=== PATIENT | male | born 1960 | race Caucasian/White ===

== ENCOUNTER 2016-07-08 22:42 | Inpatient (IN) | payer OTHER ==
--- NOTE | ~2016-07-08 | CN ---
Consultation Report [facility] [address] [place]. [address] NAME: YVETTE JACOME : 56 STATUS : ADM Trish PAT#: [id number] AGE: 56 ADM/REG DATE : 07/08/16 MR#: [id number] REPORT SERV DATE: 07/09/16 DICTATED BY: KJ TOSCANO DATE: 07/09/16 REPORT STATUS : Draft TRANSCRIBED BY: MODL DATE: 07/09/16 SURGERY CONSULT NOTE DATE OF CONSULTATION: 07/09/2016 REASON FOR CONSULT: Possible colonic pseudo-obstruction. HISTORY OF PRESENT ILLNESS: This is a 56-year-old male was in his normal state of health until after eating a hamburger on . He subsequently had epigastric pain, nausea, vomiting, followed by diarrhea. He has had diarrhea ever since, but he did take some Imodium, which slowed the diarrhea. He came to the hospital and was evaluated and CT scan, which showed some concern for Sirena's syndrome. The patient was admitted overnight, started on IV fluids. He states, he feels much better this morning. He has already had several bouts of diarrhea this morning. Although, his abdominal pain has gone. He also states, he is feeling hungry at this point for the first time. The patient denies any other complaints at this time. PAST MEDICAL HISTORY: Hypertension, hyperlipidemia. PAST SURGICAL HISTORY: None. SOCIAL HISTORY: Denies any tobacco, alcohol, or illicit drug use. HOME MEDICATIONS: Antihypertensive pill, he is on cholesterol medicine and he cannot remember the name. He is also recently on Z-Chester for sinus infection. FAMILY HISTORY: Significant for kidney cancer in his father. ALLERGIES: NONE. REVIEW OF SYSTEMS: Comprehensive review of systems is performed and is negative other than in the HPI. PHYSICAL EXAMINATION: GENERAL: This is a 56-year-old male, looks his stated age. No acute distress. VITAL SIGNS: Temp 98.5, blood pressure 104/60, heart rate 60, respiratory rate 14, O2 saturation 98% on room air. NEURO: The patient is alert and oriented x3. No focal sensory motor deficits. HEENT: The patient is normocephalic. Head is atraumatic. Pupils are equal, round, reactive to light. Extraocular muscles intact. NECK: Soft and supple. Trachea is midline. HEART: Regular rate and rhythm. No murmurs, gallops, or rubs. CHEST: Clear to auscultation bilaterally. No rhonchi. No wheezes. ABDOMEN: Soft, nondistended, nontender. Positive bowel sounds. Consultation Report [facility] [place]. [address] NAME: YVETTE JACOME : 56 STATUS : ADM Trish PAT#: [id number] AGE: 56 ADM/REG DATE : 07/08/16 MR#: [id number] REPORT SERV DATE: 07/09/16 DICTATED BY: KJ TOSCANO DATE: 07/09/16 REPORT STATUS : Draft TRANSCRIBED BY: MODCollette DATE: 07/09/16 EXTREMITIES: The patient moves all extremities. LABORATORIES: White count 6.9, hematocrit 45.7. Sodium 136, potassium 3.6, chloride 106, creatinine 0.85. Amylase, lipase normal. ASSESSMENT AND PLAN: This is a 56-year-old male likely with gastroenteritis. Symptoms not truly consisted with Wildorado's. I do not feel this is an Wildorado's type picture, some concern for C diff given the patient's recent use of antibiotics versus different sort of gastroenteritis. C diff, his stool cultures already been sent. We will plan on signing off. Please call if you have any questions. DICTATED BY: MD FAM Caldwell/JOSE DE JESUS Kj Toscano M.D. / [id number] CC: Amanda Grover
--- NOTE | ~2016-07-08 | HP ---
History And Physical [facility] [address] [place]. [address] NAME: YVETTE JACOME : 56 STATUS : ADM Trish PAT#: [id number] AGE: 56 ADM/REG DATE : 07/08/16 MR#: [id number] REPORT SERV DATE: 07/09/16 DICTATED BY: JESÚS LUX DATE: 07/09/16 REPORT STATUS : Draft TRANSCRIBED BY: MODL DATE: 07/09/16 DATE OF ADMISSION: 07/08/2016 CHIEF COMPLAINT: Abdominal pain, nausea. HISTORY OF PRESENT ILLNESS: This is a 56-year-old male with a history of nephrolithiasis and no other significant past medical history, presents to the emergency room at [facility] with the above-mentioned complaint. History is obtained from the patient, his , who is at bedside, and reviewing data available on the [facility] system. According to Mr. Jacome, he had been in usual state of health and around last , he ate a burger at [facility]. He states he was very hungry and ate it little fast, but since then has had some epigastric discomfort, like he has acid reflux, but the main problem was his belly, which was constantly rumbling. He had diarrhea with watery brown stools, which then turned into clear mucoid stools. He says there was no blood, there were no black or tarry stools seen at all. He thought it would pass, but when it continued into Sunday, he then took some Imodium. This stopped the diarrhea, but he continued to have nausea and his abdomen was distended and painful. He decided to come to the emergency room to be evaluated. In the emergency room, initial workup including a CT scan of his abdomen and pelvis revealed acute colonic ileus without any perforation or obstruction. The ER physicians had spoken with Dr. Toscano, the general surgeon, who advised admission to the Hospitalist Service, keep n.p.o. and IV fluids, and they will consult in the morning. At the time of my evaluation, he continued to have some abdominal discomfort and nausea. He denied any chest pain or palpitations. He had no orthopnea. He had no cough, hemoptysis, night sweats, or weight loss. He has not had any recent falls or loss of consciousness. No history of fevers or chills. He denied any hematemesis, hematochezia, or hematuria. No other history of recent travel or exposures other than those mentioned above. PAST MEDICAL HISTORY: Significant for history of nephrolithiasis. SOCIAL HISTORY: He does not smoke, drink, or use recreational drugs. He does, however, chew and he uses twist of tobacco a week. FAMILY HISTORY: Noncontributory. MEDICATIONS: His medications at home were reviewed by me in the chart today and to be reordered by me. REVIEW OF SYSTEMS: As in history of present illness. All other systems were reviewed in detail and are quite unremarkable. History And Physical [address] [address] NAME: YVETTE JACOME : 56 STATUS : ADM Trish PAT#: [id number] AGE: 56 ADM/REG DATE : 07/08/16 MR#: [id number] REPORT SERV DATE: 07/09/16 DICTATED BY: JESÚS LUX DATE: 07/09/16 REPORT STATUS : Draft TRANSCRIBED BY: JOSE DE JESUS DATE: 07/09/16 PHYSICAL EXAMINATION: GENERAL: This is a pleasant 56-year-old, not in any acute distress. HEENT: Head is atraumatic, normocephalic. He is alert, awake, oriented to time, place, and person. Pupils are equal, reacting to light and accommodating. External ocular muscles are intact. Membranes are moist and pink. Sclerae are nonicteric. NECK: Supple with no jugular venous distention, lymphadenopathy, or thyromegaly. LUNGS: Clear to auscultation with no wheezes, rubs, or crackles. HEART: Heart sounds were regular with no murmurs, rubs, or gallops. ABDOMEN: Mildly distended and slightly tympanic with loud borborygmi upon auscultation. EXTREMITIES: Showed no cyanosis, clubbing, or edema. NEUROLOGIC: Grossly intact. No focal sensory or motor deficits. Higher functions appeared intact. Gait was not examined. VITAL SIGNS: Showed a temperature of 99.3, pulse 112, respirations 20 a minute, blood pressure was 130/87, oxygen saturations were 97%, breathing 2 L of oxygen via nasal cannula. LABORATORY DATA: Reviewed on the [facility] showed a sodium of 132, potassium 3.6, chloride 98 and CO2 of 25, BUN was 14 with a creatinine of 1.26 and glucose was 123. Calcium was 8.1. Magnesium was not checked. His lipase was 48. CBC showed a normal white blood cell count, hemoglobin was 18.1, hematocrit 49.3, and platelet count was 116,000. Urinalysis was grossly unremarkable. Films of the CT scan of his abdomen and pelvis were reviewed by me on the PACS today. Official Radiology comments were also reviewed. According to the radiologist, there is moderate distention of the right colon with gas and fluid. There is no focal transition point detected. There is gradual caliber change within the left colon. His impression was acute colonic ileus. IMPRESSION: 1. Acute abdominal pain. 2. Nausea, vomiting, and diarrhea. 3. Acute colonic ileus or Sirena syndrome. 4. History of nephrolithiasis. PLAN: We will admit Mr. Jacome to the Hospitalist Service with telemetry for a 24-hour observation period. We will keep him n.p.o. for now. Start him on IV fluids for volume replacement and go ahead and consult General Surgery to see him in the morning. As mentioned above, the ER physician had already spoken with Dr. Toscano and he had suggested the above. Meanwhile, we will start him on intravenous Zofran and Phenergan on an as-needed basis for symptoms of nausea and vomiting. We will avoid narcotics to treat pain as this will worsen his ileus. I have explained this to the patient and his . We will also place him on SCDs for DVT prophylaxis while he is here. Again we will be watching him closely, repeat labs and chemistry in the morning including CBC, and watch for bowel perforation or other complications. Hospitalist Service will be following him during his stay here. MR/BRANDENL History And Physical [address] [address] NAME: YVETTE JACOME : 56 STATUS : ADM Trish PAT#: [id number] AGE: 56 ADM/REG DATE : 07/08/16 MR#: [id number] REPORT SERV DATE: 07/09/16 DICTATED BY: JESÚS LUX DATE: 07/09/16 REPORT STATUS : Draft TRANSCRIBED BY: JOSE DE JESUS DATE: 07/09/16 Jesús Lux M.D. / [id number] CC: Amanda Grover
--- NOTE | ~2016-07-08 | DS ---
Discharge Summary [facility] [address] [place]. [address] NAME: YVETTE JACOME : 56 STATUS : DIS Trish PAT#: [id number] AGE: 56 ADM/REG DATE : 07/08/16 MR#: [id number] REPORT SERV DATE: 07/12/16 DICTATED BY: FADIA SNOWDEN DATE: 07/11/16 REPORT STATUS : Draft TRANSCRIBED BY: JOSE DE JESUS DATE: 07/11/16 ADMISSION DATE: 07/08/2016 DISCHARGE DATE: 07/11/2016 DIAGNOSES: 1. Colonic ileus, resolved. 2. Diarrhea, resolved. 3. New-onset atrial fibrillation, resolved. 4. History of hypertension. FOLLOWUP: The patient should follow up with Dr. Harvey of Cardiology, [facility], in three to four weeks and follow up with the primary care physician in one to two weeks. DIET: GI soft diet. DISCHARGE MEDICATIONS: Metoprolol 12.5 mg p.o. b.i.d., Pravachol 20 mg p.o. q.h.s., Xarelto 20 mg p.o. with supper, Levaquin 750 mg p.o. daily for three days, Flagyl 500 mg p.o. t.i.d. for four days. HOSPITALIST: Dr. Jesús Shay, Dr. Simon, and Dr. Snowden. CONSULTANTS: General Surgery, Dr. Toscano, and Cardiology/[facility] with Dr. Kev Harvey. HOSPITAL COURSE: A 56 years old male with past medical history of hypertension presented with increased abdominal pain with distention, nausea, and severe diarrhea after eating a hamburger. The patient presented to [facility] ER, had a CT of the abdomen and pelvis that revealed colonic ileus with no signs of perforation or obstruction. Dr. Toscano with General Surgery was consulted by ER physician with recommendation of following the patient in consultation. The patient was admitted to the Hospitalist Service, initially made n.p.o., also seen by Cardiology Service for acute-onset atrial fibrillation. The patient was placed on metoprolol as well as IV heparin. Also, the patient had a recent echocardiogram as an outpatient that revealed an ejection fraction of 65%, which was faxed over to the chart. The patient also was initially cared for by Dr. Aurora. His diet was slowly advanced as tolerated. Electrolytes were replaced. At the time of discharge, the patient was eating well with normal bowel movements and no nausea and vomiting with good flatulence. Also, lipase was within normal limits with a normal lactate. It was recommended by Cardiology for the patient to continue with 30 days of Xarelto, for which the patient was discharged with that recommendation and was clinically and hemodynamically stable for discharge. [facility]/JOSE DE JESUS Fadia Snowden M.D. Discharge Summary [address] [address] NAME: YVETTE JACOME : 56 STATUS : DIS Trish PAT#: [id number] AGE: 56 ADM/REG DATE : 07/08/16 MR#: [id number] REPORT SERV DATE: 07/12/16 DICTATED BY: FADIA SNOWDEN DATE: 07/11/16 REPORT STATUS : Draft TRANSCRIBED BY: JOSE DE JESUS DATE: 07/11/16 / [id number] CC: Amanda Dailey
--- NOTE | ~2016-07-08 | CN ---
Consultation Report [facility] [address] [place]. [address] NAME: YVETTE JACOME : 56 STATUS : ADM Trish PAT#: [id number] AGE: 56 ADM/REG DATE : 07/08/16 MR#: [id number] REPORT SERV DATE: 07/09/16 DICTATED BY: KEV HARVEY DATE: 07/09/16 REPORT STATUS : Draft TRANSCRIBED BY: MODL DATE: 07/09/16 CARDIOLOGY CONSULTATION DATE OF CONSULTATION: 07/09/2016 INDICATIONS: Atrial fibrillation. HISTORY OF PRESENT ILLNESS: Yvette Jacome is a 56-year-old man with a past medical history essentially for hypertension and dyslipidemia, presents to the emergency room with diarrhea, abdominal pain, nausea, vomiting, and fevers. He was found to have an ileus. He began to pass stool. He was seen by surgery with no plans for surgical intervention. While in the hospital, he developed atrial fibrillation and Cardiology was consulted. He had an echocardiogram performed last week secondary to report of "cardiomegaly" on the chest x-ray, but did not have the results. He has no sensation of palpitations or irregular rhythm. No lightheadedness. No dizziness. No syncope. Has never been diagnosed with atrial fibrillation or any other cardiac issues other than "cardiomegaly." PAST MEDICAL HISTORY: Hypertension and dyslipidemia. HOME MEDICATIONS: Flexeril, Prinivil 10 mg daily, Pravachol 20 daily. ALLERGIES: PENICILLINS, OXYCODONE, AND ASPIRIN. SOCIAL HISTORY: No smoking. No alcohol. He is a resendez, lives with his spouse. FAMILY HISTORY: Reviewed and notable for hypertension. REVIEW OF SYSTEMS: As per the HPI. Otherwise, all review of systems is negative. PHYSICAL EXAMINATION: VITAL SIGNS: Blood pressure of 130/87, pulse 112, respiratory rate 18. GENERAL: Appears stated age, no distress. EYES: Sclerae anicteric, no arcus senilis. MOUTH: Oral mucosa moist, lips acyanotic. NECK: Jugular venous pressure normal, no carotid bruits. LUNGS: Clear to auscultation bilaterally, normal inspiratory effort. CARDIAC: Irregular rhythm. ABDOMEN: Soft, nondistended, nontender. EXTREMITIES: No edema. SKIN: Warm and dry. NEURO/PSYCH: Alert and oriented, nonfocal, mood appropriate. DATA: Potassium is 3.6. Creatinine 0.85. Hemoglobin 16.5. Consultation Report [facility] [id number] [place]. [address] NAME: YVETTE JACOME : 56 STATUS : ADM Trish PAT#: [id number] AGE: 56 ADM/REG DATE : 07/08/16 MR#: [id number] REPORT SERV DATE: 07/09/16 DICTATED BY: KEV HARVEY DATE: 07/09/16 REPORT STATUS : Draft TRANSCRIBED BY: JOSE DE JESUS DATE: 07/09/16 EKG: Atrial fibrillation with ventricular response at 72 beats per minute. QTc is 82 milliseconds. No chest x-ray. IMPRESSION: 1. New atrial fibrillation. 2. Ileus. 3. Hypertension. 4. Dyslipidemia. RECOMMENDATIONS: Obtain recent echocardiogram. Begin metoprolol and flecainide. IV heparin overnight and consider oral anticoagulation tomorrow pending clinical course. [facility]/JOSE DE JESUS Kev Harvey M.D. / [id number] CC: Amanda Grover, Jessica Lyn
[2016-07-08 21:33] LABS: BASOPHILS 0.1 %; BASOPHILS ABSOLUTE 0.01 10/3/uL (0.0-0.16); EOSINOPHILS 0.4 %; EOSINOPHILS ABSOLUTE 0.03 10/3/uL (0.0-0.53); HEMATOCRIT 49.3 % (40.0-51.0); HEMOGLOBIN 18.1 g/dL (13.6-17.8); IMMATURE GRANULOCYTES 0.5 %; IMMATURE GRANULOCYTES ABSOLUTE 0.04 10/3/uL (0.0-0.11); LYMPHOCYTES 5.8 %; LYMPHOCYTES ABSOLUTE 0.45 10/3/uL (0.67-4.30); MEAN CORPUS HGB CONC 36.7 g/dL (32.0-36.0); MEAN CORPUSCULAR HEMOGLOB 31.9 pg (26.0-34.0); MEAN CORPUSCULAR VOLUME 86.9 fL (80-100); MEAN PLATELET VOLUME 10.6 fL (9.2-13.0); MONOCYTES 6.6 %; MONOCYTES ABSOLUTE 0.51 10/3/uL (0.21-1.20); NEUTROPHILS 86.6 %; NEUTROPHILS ABSOLUTE 6.66 10/3/uL (2.02-8.40); PLATELET COUNT 116 10/3/uL (150-400); RBC DISTRIBUTION WIDTH 13.8 % (12.0-16.0); RED CELL COUNT 5.67 10/6/uL (4.7-6.1); WHITE BLOOD CELLS 7.7 10/3/uL (4.5-10.5)
[2016-07-08 21:34] LABS: MANUAL DIFF NO %
[2016-07-08 21:36] LABS: ASCORBIC ACID (UR NOT ORDER) NEG (NEG); BILIRUBIN, URINE NEGATIVE (NEG); ER URINALYSIS TAT 0 Hrs 09 Mins; KETONE, URINE NEGATIVE (NEG); LEUKOCYTE ESTERASE(NOT OR NEG (NEG); NITRITE (URINE) NEG (NEG); WBC (NOT ORDERED) (RFLEX) 1 (0-5)
[2016-07-08 21:48] LABS: A/G RATIO 0.9 (0.7-1.9); ALBUMIN 3.4 G/DL (3.5-5.0); ALKALINE PHOSPHATASE 78 U/L (45-117); BUN (BLOOD UREA NITROGEN) 14 MG/DL (6-23); CALCIUM, SERUM 8.1 MG/DL (8.5-10.4); CHLORIDE, SERUM 98 MMOL/L (96-112); CO2 (CARBON DIOXIDE) 25 MMOL/L (24-34); CREATININE 1.26 MG/DL (0.70-1.30); GFR AFRICAN AMERICAN 72 ML/MIN (>=60); GFR NON AFRICAN AMERICAN 62 ML/MIN (>=60); GLOBULIN 3.6 G/DL (2.5-4.1); GLUCOSE, SERUM 123 MG/DL (60-99); POTASSIUM, SERUM 3.6 MMOL/L (3.5-5.3); SGOT(AST) 16 U/L (5-40); SGPT(ALT) 26 U/L (5-65); SODIUM, SERUM 132 MMOL/L (135-148); TOTAL BILIRUBIN 1.1 MG/DL (0-1.2)
[2016-07-08 23:21] LABS: INFLUENZA A SCREEN NEGATIVE (NEGATIVE); INFLUENZA B SCREEN NEGATIVE (NEGATIVE)
[2016-07-09 07:35] LABS: BASOPHILS 0.4 %; BASOPHILS ABSOLUTE 0.03 10/3/uL (0.0-0.16); EOSINOPHILS 0.4 %; EOSINOPHILS ABSOLUTE 0.03 10/3/uL (0.0-0.53); HEMATOCRIT 45.7 % (40.0-51.0); HEMOGLOBIN 16.5 g/dL (13.6-17.8); IMMATURE GRANULOCYTES 0.1 %; IMMATURE GRANULOCYTES ABSOLUTE 0.01 10/3/uL (0.0-0.11); LYMPHOCYTES 10.7 %; LYMPHOCYTES ABSOLUTE 0.74 10/3/uL (0.67-4.30); MEAN CORPUS HGB CONC 36.1 g/dL (32.0-36.0); MEAN CORPUSCULAR HEMOGLOB 31.4 pg (26.0-34.0); MEAN CORPUSCULAR VOLUME 86.9 fL (80-100); MEAN PLATELET VOLUME 11.3 fL (9.2-13.0); MONOCYTES 13.9 %; MONOCYTES ABSOLUTE 0.96 10/3/uL (0.21-1.20); NEUTROPHILS 74.5 %; NEUTROPHILS ABSOLUTE 5.14 10/3/uL (2.02-8.40); PLATELET COUNT 103 10/3/uL (150-400); RBC DISTRIBUTION WIDTH 14.1 % (12.0-16.0); RED CELL COUNT 5.26 10/6/uL (4.7-6.1); WHITE BLOOD CELLS 6.9 10/3/uL (4.5-10.5)
[2016-07-09 07:38] LABS: MANUAL DIFF NO %
[2016-07-09 07:49] LABS: BUN (BLOOD UREA NITROGEN) 13 MG/DL (6-23); CALCIUM, SERUM 8.1 MG/DL (8.5-10.4); CHLORIDE, SERUM 106 MMOL/L (96-112); CO2 (CARBON DIOXIDE) 21 MMOL/L (24-34); CREATININE 0.85 MG/DL (0.70-1.30); GFR AFRICAN AMERICAN 111 ML/MIN (>=60); GFR NON AFRICAN AMERICAN 96 ML/MIN (>=60); GLUCOSE, SERUM 107 MG/DL (60-99); PHOSPHORUS, SERUM 2.5 MG/DL (2.5-4.5); POTASSIUM, SERUM 3.6 MMOL/L (3.5-5.3); SODIUM, SERUM 136 MMOL/L (135-148)
[2016-07-09] MEDS ORDERED: FLEX PO ×2 (08:35→15:32)
[2016-07-09] MEDS ORDERED: PRIN10 PO ×2 (08:36→15:32)
[2016-07-09] MEDS ORDERED: PRAVAC PO ×2 (08:37→15:32)
[2016-07-09 15:31] LABS: POTASSIUM, SERUM 3.6 MMOL/L (3.5-5.3); TROPONIN I <0.02 NG/ML (<0.05)
[2016-07-09 17:29] LABS: INTERNATIONAL NORMAL RATI 1.2 UNITS (-); PARTIAL THROMBO TIME 39.9 SEC (22.5-37.2); PROTIME (NOT ORD) 15.5 SEC (12.0-14.5)
[2016-07-10 04:39] LABS: BASOPHILS 0.5 %; BASOPHILS ABSOLUTE 0.02 10/3/uL (0.0-0.16); EOSINOPHILS 3.2 %; EOSINOPHILS ABSOLUTE 0.13 10/3/uL (0.0-0.53); HEMATOCRIT 43.4 % (40.0-51.0); HEMOGLOBIN 15.2 g/dL (13.6-17.8); IMMATURE GRANULOCYTES 0.2 %; IMMATURE GRANULOCYTES ABSOLUTE 0.01 10/3/uL (0.0-0.11); LYMPHOCYTES 35.2 %; LYMPHOCYTES ABSOLUTE 1.41 10/3/uL (0.67-4.30); MEAN CORPUSCULAR HEMOGLOB 30.6 pg (26.0-34.0); MEAN CORPUSCULAR VOLUME 87.5 fL (80-100); MEAN PLATELET VOLUME 11.5 fL (9.2-13.0); MONOCYTES 15.5 %; MONOCYTES ABSOLUTE 0.62 10/3/uL (0.21-1.20); NEUTROPHILS 45.4 %; NEUTROPHILS ABSOLUTE 1.82 10/3/uL (2.02-8.40); PLATELET COUNT 95 10/3/uL (150-400); RBC DISTRIBUTION WIDTH 14.7 % (12.0-16.0); RED CELL COUNT 4.96 10/6/uL (4.7-6.1)
[2016-07-10 04:43] LABS: BUN (BLOOD UREA NITROGEN) 13 MG/DL (6-23); CALCIUM, SERUM 7.6 MG/DL (8.5-10.4); CHLORIDE, SERUM 103 MMOL/L (96-112); CREATININE 0.95 MG/DL (0.70-1.30); GFR AFRICAN AMERICAN 102 ML/MIN (>=60); GFR NON AFRICAN AMERICAN 88 ML/MIN (>=60); GLUCOSE, SERUM 93 MG/DL (60-99); POTASSIUM, SERUM 3.9 MMOL/L (3.5-5.3); SODIUM, SERUM 140 MMOL/L (135-148)
[2016-07-10 04:44] LABS: MANUAL DIFF NO %
[2016-07-10 04:46] LABS: CO2 (CARBON DIOXIDE) 27 MMOL/L (24-34)
[2016-07-11 05:40] LABS: BASOPHILS 0.5 %; BASOPHILS ABSOLUTE 0.02 10/3/uL (0.0-0.16); EOSINOPHILS 2.9 %; EOSINOPHILS ABSOLUTE 0.12 10/3/uL (0.0-0.53); HEMATOCRIT 42.4 % (40.0-51.0); HEMOGLOBIN 14.9 g/dL (13.6-17.8); IMMATURE GRANULOCYTES 0.2 %; IMMATURE GRANULOCYTES ABSOLUTE 0.01 10/3/uL (0.0-0.11); LYMPHOCYTES 45.8 %; MEAN CORPUS HGB CONC 35.1 g/dL (32.0-36.0); MEAN CORPUSCULAR HEMOGLOB 30.8 pg (26.0-34.0); MEAN CORPUSCULAR VOLUME 87.6 fL (80-100); MEAN PLATELET VOLUME 10.9 fL (9.2-13.0); MONOCYTES 8.7 %; MONOCYTES ABSOLUTE 0.36 10/3/uL (0.21-1.20); NEUTROPHILS 41.9 %; NEUTROPHILS ABSOLUTE 1.74 10/3/uL (2.02-8.40); PLATELET COUNT 98 10/3/uL (150-400); RBC DISTRIBUTION WIDTH 14.6 % (12.0-16.0); RED CELL COUNT 4.84 10/6/uL (4.7-6.1); WHITE BLOOD CELLS 4.2 10/3/uL (4.5-10.5)
[2016-07-11 05:41] LABS: MANUAL DIFF NO %
[2016-07-11 05:54] LABS: BUN (BLOOD UREA NITROGEN) 14 MG/DL (6-23); CALCIUM, SERUM 8.2 MG/DL (8.5-10.4); CHLORIDE, SERUM 107 MMOL/L (96-112); CO2 (CARBON DIOXIDE) 28 MMOL/L (24-34); CREATININE 1.03 MG/DL (0.70-1.30); GFR AFRICAN AMERICAN 92 ML/MIN (>=60); GFR NON AFRICAN AMERICAN 80 ML/MIN (>=60); GLUCOSE, SERUM 103 MG/DL (60-99); POTASSIUM, SERUM 4.1 MMOL/L (3.5-5.3); SODIUM, SERUM 141 MMOL/L (135-148)
[2016-07-11] MEDS ORDERED: XARELTO20 MG PO (09:06)
[2016-07-11] MEDS ORDERED: LOP25 PO (09:06)
[2016-07-11] MEDS ORDERED: LEVAQUIN750 MG PO (09:07)
[2016-07-11] MEDS ORDERED: FLAG500TAB PO (09:08)
== END 2016-07-11 10:48 | disposition home or self-care (01) | DRG 390 ==
LOC: ER 22:42 → 5SO 23:59
PROVIDERS: Emergency Medicine; Hospitalist; Internal Medicine Cardiovascular Disease; Internal Medicine Pulmonary Disease
DX: K56.7 Ileus, unspecified (principal); I48.0 Paroxysmal atrial fibrillation; I10 Essential (primary) hypertension; E11.9 Type 2 diabetes mellitus without complications; Z79.899 Other long term (current) drug therapy; Z88.0 Allergy status to penicillin; Z88.5 Allergy status to narcotic agent; Z88.6 Allergy status to analgesic agent; Z87.442 Personal history of urinary calculi; Z72.0 Tobacco use
CPT/HCPCS: 74177; 80048; 80053; 81001; 82150; 83605; 83690; 83735; 83880; 84100; 84132; 84484; 85025; 85610; 85730; 87040; 87045; 87046; 87046-59; 87329; 87493; 87493-59; 87804; 87899; 87899-59; 89055; 93005; 96374; 96375; 99285; A9270-GY; J1956; J2405; Q9967

== ENCOUNTER 2016-07-11 17:33 | Emergency (ER) | payer OTHER ==
[~2016-07-11 17:33] MED LIST: FLAG500TAB PO; FLEX PO; LEVAQUIN750 MG PO; LOP25 PO; PRAVAC PO; PRIN10 PO; XARELTO20 MG PO
[2016-07-11 17:48] LABS: BASOPHILS 0.4 %; BASOPHILS ABSOLUTE 0.02 10/3/uL (0.0-0.16); EOSINOPHILS 1.2 %; EOSINOPHILS ABSOLUTE 0.07 10/3/uL (0.0-0.53); ER CBC TAT 0 Hrs 03 Mins; HEMATOCRIT 47.6 % (40.0-51.0); HEMOGLOBIN 17.1 g/dL (13.6-17.8); IMMATURE GRANULOCYTES 0.2 %; IMMATURE GRANULOCYTES ABSOLUTE 0.01 10/3/uL (0.0-0.11); LYMPHOCYTES 37.4 %; MANUAL DIFF NO %; MEAN CORPUS HGB CONC 35.9 g/dL (32.0-36.0); MEAN CORPUSCULAR VOLUME 86.4 fL (80-100); MEAN PLATELET VOLUME 11.2 fL (9.2-13.0); MONOCYTES 8.2 %; MONOCYTES ABSOLUTE 0.46 10/3/uL (0.21-1.20); NEUTROPHILS 52.6 %; NEUTROPHILS ABSOLUTE 2.96 10/3/uL (2.02-8.40); PLATELET COUNT 127 10/3/uL (150-400); RBC DISTRIBUTION WIDTH 14.6 % (12.0-16.0); RED CELL COUNT 5.51 10/6/uL (4.7-6.1); WHITE BLOOD CELLS 5.6 10/3/uL (4.5-10.5)
[2016-07-11 18:02] LABS: INTERNATIONAL NORMAL RATI 1.1 UNITS (-); PARTIAL THROMBO TIME 35.1 SEC (22.5-37.2); PROTIME (NOT ORD) 14.3 SEC (12.0-14.5)
[2016-07-11 18:04] LABS: BUN (BLOOD UREA NITROGEN) 15 MG/DL (6-23); CALCIUM, SERUM 8.5 MG/DL (8.5-10.4); CHEST PAIN PROFILE TAT 0 Hrs 19 Mins; CHLORIDE, SERUM 103 MMOL/L (96-112); CO2 (CARBON DIOXIDE) 29 MMOL/L (24-34); CREATININE 1.07 MG/DL (0.70-1.30); GFR AFRICAN AMERICAN 88 ML/MIN (>=60); GFR NON AFRICAN AMERICAN 76 ML/MIN (>=60); GLUCOSE, SERUM 96 MG/DL (60-99); SODIUM, SERUM 140 MMOL/L (135-148); TROPONIN I <0.02 NG/ML (<0.05)
== END 2016-07-11 21:48 | disposition home or self-care (01) ==
LOC: ER 17:33
PROVIDERS: Emergency Medicine
DX: H81.10 Benign paroxysmal vertigo, unspecified ear (principal); I48.92 Unspecified atrial flutter; Z87.442 Personal history of urinary calculi; I10 Essential (primary) hypertension; Z88.0 Allergy status to penicillin; Z88.8 Allergy status to other drugs, medicaments and biological substances; Z79.899 Other long term (current) drug therapy
CPT/HCPCS: 70450; 71020; 80048; 83735; 84484; 85025; 85610; 85730; 93005; 99285; A9270-GY